=== PATIENT | female | born 1980 ===

== ENCOUNTER 2024-12-27 07:49 | Day surgery (SDC) | payer OTHER ==
[2024-12-17 12:10] VITALS: BP 120/81
[~2024-12-27] VITALS: Ht 167.6 cm; Wt 79.4 kg
[~2024-12-27 07:49] MED LIST: SYNTHROID88 MCG PO
[2024-12-27] MEDS ORDERED: IBU800 MG PO (13:02)
[2024-12-27] MEDS ORDERED: NEURONTIN300 MG PO (13:03)
[2024-12-27] MEDS ORDERED: BUPIVACAINE HCL 30 ML VIAL IJ ONE (14:45)
[2024-12-27] MEDS ORDERED: LIDOCAINE HCL 1%/EPINEPHRINE 20ML VIAL IJ ONE (14:45)
== END 2024-12-27 15:40 | disposition home or self-care (01) ==
LOC: CIR.AMB 07:49
PROVIDERS: ATTEND Obstetrics & Gynecology Gynecology
DX: D27.1 Benign neoplasm of left ovary (principal); D28.2 Benign neoplasm of uterine tubes and ligaments